=== PATIENT | female | born 1970 | race Caucasian/White ===

== ENCOUNTER 2016-05-31 11:06 | Outpatient (CLI) | payer MEDICAID, OTHER | END 2016-05-31 11:07 | disposition home or self-care (01) | DX: Z20.3 Contact with and (suspected) exposure to rabies (principal); Z71.89 Other specified counseling ==

== ENCOUNTER 2017-01-05 12:38 | Outpatient (CLI) | payer OTHER ==
--- NOTE | 2017-01-05 18:02 | Mammography Report ---
DIGITAL DIAGNOSTIC BILATERAL MAMMOGRAM: 01/05/2017 CLINICAL INDICATION: A 46-year-old with history of late childbearing, personal history of right breast cancer status post lumpectomy. COMPARISON: 10/2015, 11/2014, 07/2014, 12/2013, 07/2011, 07/2010 TECHNIQUE: Bilateral CC and MLO views, bilateral laterally exaggerated craniocaudal views, right true lateral view. FINDINGS: The breasts again demonstrate heterogeneously dense fibroglandular parenchyma. Postoperative and post-treatment changes in the right breast are stable. A few coarse, typically benign calcifications are present. No suspicious masses, clustered microcalcifications, or regions of architectural distortion are identified. IMPRESSION: BENIGN FINDINGS. RECOMMENDATION: ROUTINE ANNUAL SCREENING UNLESS OTHERWISE CLINICALLY INDICATED. BIRADS CATEGORY: 2, BENIGN FINDINGS. STANDARD QUALIFYING STATEMENTS 1. This examination was reviewed with the aid of Computed-Aided Detection (CAD) . 2. A negative or benign imaging report should not delay biopsy if clinically suspicious findings are present. Consider surgical consultation if warranted. More than 5% of cancers are not identified by imaging. 3. Dense breasts may obscure an underlying neoplasm. JOB #: [id number] EXT JOB #: MTDD
== END 2017-01-05 12:39 | disposition home or self-care (01) ==
LOC: DI 12:38
PROVIDERS: ATTEND Internal Medicine Hematology & Oncology
DX: D05.11 Intraductal carcinoma in situ of right breast (principal)
CPT/HCPCS: 77066

== ENCOUNTER 2018-01-04 10:58 | Outpatient (CLI) | payer OTHER ==
--- NOTE | 2018-01-04 12:18 | Mammography Report ---
Reason: RT DCIS Procedure Date: 01/04/2018 Accession Number: [id number] / [id number] Procedure: [facility] - Diagnostic Dig Bilat CPT Code: FULL RESULT: EXAM: Diagnostic Dig Bilat DATE: 01/04/2018 12:00 PM CLINICAL HISTORY: 47-year-old female with history of late childbearing and personal history of right breast cancer status post lumpectomy in 2013. She presents for follow-up diagnostic mammogram. TECHNIQUE: Bilateral CC and MLO views were obtained in 2-D and 3-D tomographic technique. COMPARISON: December 2016 and studies dating back to 2013. FINDINGS: The breasts demonstrate heterogeneously dense fibroglandular parenchyma bilaterally. Posttreatment changes in the right breast are stable. No suspicious masses, clustered microcalcifications, or regions of architectural distortion are identified. IMPRESSION: Benign findings RECOMMENDATION: Recommend routine annual Screening mammography unless otherwise clinically indicated. BIRADS CATEGORY 2: Benign findings STANDARD QUALIFYING STATEMENTS: 1. This examination was not reviewed with the aid of Computer-Aided Detection (CAD). 2. A negative or benign imaging report should not delay biopsy if clinically suspicious findings are present. Consider surgical consultation if warrented. More than 5% of cancers are not identified by imaging. 3. Dense breasts may obscure an underlying neoplasm. 4. This examination was reviewed with the aid of 3D imaging (tomography).
== END 2018-01-04 10:59 | disposition home or self-care (01) ==
LOC: DI 10:58
PROVIDERS: ATTEND Internal Medicine Hematology & Oncology
DX: D05.11 Intraductal carcinoma in situ of right breast (principal)
CPT/HCPCS: 77066

== ENCOUNTER 2019-01-03 11:02 | Outpatient (CLI) | payer OTHER ==
--- NOTE | 2019-01-03 15:50 | Mammography Report ---
Reason: RT BREAST CA, DCIS Procedure Date: 01/03/2019 Accession Number: [id number] / [id number] Procedure: [facility] - Diagnostic Dig Bilat CPT Code: Final Report FULL RESULT: EXAM: Breast Unilateral Limited, Diagnostic Dig Bilat with stefan DATE: 01/03/2019 1:57 PM CLINICAL HISTORY: The patient is an asymptomatic 48-year-old female with a personal history of right breast cancer, post conservation therapy presenting for routine annual evaluation. BILATERAL MAMMOGRAM: TECHNIQUE: Standard CC and MLO views. Diagnostic left breast views. PARENCHYMAL PATTERN: The breast tissue is heterogeneously dense which limits mammographic sensitivity. FINDINGS: RIGHT BREAST: Stable post treatment changes. LEFT BREAST: A new focal nodular asymmetry (ultrasound proven cyst cluster) is noted the 4:00 middle position. The remainder of the breast is stable and unremarkable. There is no mammographic evidence for malignancy. LEFT BREAST ULTRASOUND: TECHNIQUE: High-frequency transducer was utilized to evaluate the area of mammographic concern in the lower outer quadrant. Doppler utilized. 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 FINDINGS: There is an avascular cyst cluster in the 4:00 axis 3 cm from the nipple measuring 7 mm in maximal dimension. This corresponds to the mammographic finding. No solid mass, distortion or hyperemia. There is no sonographic evidence for malignancy. IMPRESSION: Benign findings. BI-RADS category 2. RECOMMENDATION: (ANNUAL) - Recommend routine annual screening mammography. BI-RADS CATEGORY: (2) - Benign Findings. STANDARD QUALIFYING STATEMENTS: 1. This examination was not reviewed with the aid of Computer-Aided Detection (CAD). 2. A negative or benign imaging report should not preclude biopsy if clinically suspicious findings are present. 3. Dense breasts may obscure an underlying neoplasm. 4. This examination was reviewed with the aid of 3D breast imaging (tomosynthesis). TERL
== END 2019-01-03 11:03 | disposition home or self-care (01) ==
LOC: DI 11:02
PROVIDERS: ATTEND Internal Medicine
DX: C50.911 Malignant neoplasm of unspecified site of right female breast (principal)
CPT/HCPCS: 77066

== ENCOUNTER 2020-06-03 13:50 | Outpatient (CLI) | payer OTHER ==
[2020-06-03 14:35] VITALS: BP 103/64
--- NOTE | 2020-06-03 14:35 | SLEEP CARE CONSULTATION ---
Information from patient questionnaire entered by Roro Romo. I have reviewed and concur with the information entered by Roro Romo. This document represents the service I personally performed and the decisions made by me, Brooklynn Knapp ARNP. History of Present Illness Service Date and Time: 06/03/2020 1350 Reason for Visit: New patient Chief Complaint: reports: Unrefreshed sleep, Snoring, Excessive daytime sleepiness, Observed pauses in breathing, Fatigue, Frequent awakenings at night Date of Onset: Most of my life ~ 39 years Usual bedtime: ~ 9 P Time it takes to fall asleep: ~ 30 mins Snores at night: Yes Observed to quit breathing while asleep: Yes Sleeps alone due to snoring: No Number of times waking at night: 3-4 Reasons for waking at night: reports: Choking, Snoring, Gasping for air, Other (unknown reason) Toss, Turn, or Twitch while sleeping: Yes Recalls having dreams: Yes Usually gets out of bed at: ~ 8 am Feels refreshed in the morning: No Morning headache: Yes (~ 12 noon; 3 days a week) Sleepy or fatigued during the day: Yes Ever fallen asleep while driving: Yes (drowsy driving, pulls over before falls asleep) Takes day naps: Yes (daily for about 30 minutes to 1.5 hrs) Dreams during day naps: Yes Prior sleep studies: No Additional HPI information: I had the pleasure of seeing SMITH ARIZA today regarding the possibility of her having a sleep disorder. Her current complaints are excessive daytime sleepiness, fatigue, frequent night awakenings, observed pauses in breathing, snoring and unrefreshed sleep. She states she feels like she is always e xhausted, especially all her adult life. Her partner uses a CPAP and suggested she should get tested. Her PCP agreed and referred. In the last several months she is waking up gasping for air, needing to breathe with her heart pounding at night. She is waking several times a night. She does snore but her significant other does not have to leave the room. Her mother has sleep apnea and is on a PAP machine - Parasomnia Symptoms Ever been unable to move upon waking from sleep: Yes Walks in sleep: No Talks in sleep: Yes Ever acted out dreams in sleep: No Ever felt weak in the knees when startled or emotional: No Bothered by creepy, crawly, restless sensations in legs: Yes (almost every night) Problems with memory or concentration: Yes (both) Subjective Initial [place] Sleepiness Scale score: 18 (in 2020) Past Medical History Past Medical History: reports: Anxiety, Other (occasional migraines - decreasing as I get older; breast cancer 5-6 yrs in remission) Social History 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 Patient is and lives in [place]. Have you smoked in the past 12 months: No Alcohol use: Yes Alcohol amount and frequency: Very occasionally - maybe once every 2-3 weeks Caffeine use: Yes Caffeine amount and frequency: Coffee daily Family History Family history of sleep disordered breathing: Yes Family Hx Sleep Apnea: Mother: Snoring, Sleep apnea - Treated Allergies and Home Medications Drug allergies reviewed: Yes (promethazine HCI) Home medication list reviewed: Yes Allergy and home medication list: Sertraline 100 mg Review of Systems Weight gain over past 5 years: 10 Cardiovascular: reports: palpitations, chest pain (anxiety). denies: high blood pressure Respiratory: reports: shortness of breath Gastrointestinal: denies: heartburn Neurological: reports: headaches (occasional), head trauma (~ 5 years ago) Psychiatric: reports: anxiety Ear/Nose/Throat: denies: tonsillectomy, wisdom teeth removed Endocrine: reports: sluggishness (tired), too hot or cold, unexplained weakness Musculoskeletal: reports: joint pain (stiffness), neck pain, back pain, muscle pain or cramping Immunologic: denies: allergies to food or environment Physical Exam Blood Pressure: 103/64 Cuff size: wrist Heart Rate: 70 O2 Saturation: 98 Height: 5 ft 7 in Weight: 154 lb Body Mass Index: 24.1 BMI Classification: Healthy weight Neck circumference: 13.75 (inches) Nostrils: patent to airflow Mouth and throat: narrow oropharynx Soft palate: long Hard palate: normal Uvula: normal Uvula visualization: 50% Mallampati Class II Tongue: enlarged in size with teeth jordan on lateral edges Tonsils: 1+ Chin and jaw: normal size and position Neck: normal w/o lymphadenopathy or thyromegaly Heart: regular rate and rhythm Lungs: clear bilaterally Impression and Plan 1. Suspected Obstructive Sleep Apnea-Hypopnea Syndrome, as suggested by a history of loud and irregular snoring, observed cessation of breath while asleep, gasping or choking in sleep, morning headache, frequent awakening during the night, unrefreshed sleep, cognitive impairment, and excessive daytime sleepiness. Narrow oropharynx and obesity are common predisposing factors for obstructive sleep apnea-hypopnea syndrome. I recommend proceeding to polysomnography to confirm the diagnosis and to assess severity. If the patient has significant sleep disordered breathing, a manual CPAP titration study will also be performed to find the optimal treatment pressure. I informed the patient of what the sleep studies involve and after some discussion, obtained agreement to proceed. The pathophysiology of obstructive sleep apnea-hypopnea syndrome was discussed with the patient and health risks of cardiovascular and cerebrovascular disease if not treated. 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 Patient agreed to plan. * Schedule polysomnography +- manual CPAP titration study and return in 1-2 weeks after the study to discuss result and initiate therapy. * Avoid long distance driving or driving when feeling sleepy. * Avoid alcohol, sedative and muscle relaxant around bedtime. * Maintain a healthy weight. * Review instructions provided by trained office staff on how to prepare for the sleep study. * Return for follow-up after sleep study completed. Counseling Topics: Weight control Visit Type: In Office Time Spent with Patient (minutes): 30 Provider Statement: I spent 100% of the Face to Face Visit with the patient with greater than 50% spent counseling the patient and coordination of care.
== END 2020-06-03 13:51 | disposition home or self-care (01) ==
LOC: SC 13:50
PROVIDERS: ATTEND Nurse Practitioner Family
DX: G47.10 Hypersomnia, unspecified (principal); R06.83 Snoring; G47.8 Other sleep disorders; R41.89 Other symptoms and signs involving cognitive functions and awareness; R51.9 Headache, unspecified; R06.81 Apnea, not elsewhere classified
CPT/HCPCS: 99203; 99212

== ENCOUNTER 2020-07-08 12:44 | Outpatient (CLI) | payer OTHER ==
--- NOTE | 2020-07-09 14:07 | Mammography Report ---
BILATERAL DIGITAL SCREENING MAMMOGRAM 3D/2D: 07/08/2020 CLINICAL: Routine screening. Routine screening. Personal history of right breast cancer. Comparison is made to exams dated: 01/03/2019 mammogram, 01/04/2018 mammogram, 01/05/2017 mammogram, 10/22/2015 mammogram, 01/16/2015 mammogram, and 07/23/2014 mammogram - Merged with [facility]. The tissue of both breasts is heterogeneously dense. This may lower the sensitivity of mammography. There are benign post operative findings in the right breast. No significant masses, calcifications, or other findings are seen in either breast. There has been no significant interval change. IMPRESSION: BENIGN There is no mammographic evidence of malignancy. A 1 year screening mammogram is recommended. This exam was interpreted at Station ID: [id number]. NOTE: For mammograms, a report in lay terms will be sent to the patient. Approximately 15% of breast malignancies will not be visualized mammographically. In the management of a palpable breast mass, a negative mammogram must not discourage biopsy of a clinically suspicious lesion. Electronically Signed By: Arthur Fierro M.D. [email or web address]/[email or web address]:07/08/2020 16:26:23 ACR BI-RADS Category 2: Benign Finding(s) 3342F PARENCHYMAL PATTERN: (D) - The breast(s) demonstrate(s) heterogeneously dense fibroglandular parben diaz. BI-RADS CATEGORY: (2) - 2 RECOMMENDATION: (ANNUAL) - Recommend routine annual screening mammography. [id number] 1 year screening LATERALITY: (B)
== END 2020-07-08 12:45 | disposition home or self-care (01) ==
LOC: DI 12:44
PROVIDERS: ATTEND Physician Assistant
DX: Z12.31 Encounter for screening mammogram for malignant neoplasm of breast (principal)

== ENCOUNTER 2020-09-26 08:18 | Outpatient (CLI) | payer OTHER ==
--- NOTE | 2020-09-26 08:37 | SLEEP CARE CONSULTATION ---
Information from patient questionnaire entered by Kathrine Uribe. I have reviewed and concur with the information entered by Kathrine Uribe. This document represents the service I personally performed and the decisions made by , Brooklynn Knapp ARNP. History of Present Illness Service Date and Time: 09/26/2020817 Initial [place] Sleepiness Scale score: 18 (in 2020) Current [place] Sleepiness Scale score: 18 Additional HPI information: SMITH ARIZA returns for follow up and results of the recently performed polysomnography at [facility] . I explained the pathophysiology behind obstructive sleep apnea. We then spent quite a bit of time discussing different treatment options. For mild obstructive sleep apnea, surgery and oral appliance are alternatives to nasal CPAP therapy but in moderate or severe cases, nasal CPAP is the most effective and reliable treatment. Because apnea is primarily in supine position, then positional management therapy could be effective. Methods discussed such as positioning with pillows, using a T-shirt with tennis balls in the back, and shown commercial products that have a pillow format on back to prevent supine sleep. I reviewed the impact of weight changes on sleep apnea and strongly recommended losing weight. Patient counseled not drink alcohol less than 4 hours before bedtime as it can increase snoring and apnea. Patient was cautioned about risks of drowsy driving until sleepiness symptoms resolve. Sleep Study - Results Type of Sleep Study: Polysomnography ([facility]) Prior sleep studies: No Polysomnography/Home Sleep Study results: INTERPRETATION: . 1 These findings are consistent with very mild obstructive sleep apnea with an apnea-hypopnea index of 5.4/hr and a minimum oxygen saturation of 80%. Allergies and Home Medications Home medication list reviewed: Yes (no changes) Review of Systems Review of systems same as previous: Yes (no changes) Physical Exam Heart Rate: 115 (had coffee this am) O2 Saturation: 96 Height: 5 ft 7 in Weight: 152 lb Body Mass Index: 23.8 BMI Classification: Healthy weight Impression and Plan 1. Obstructive Sleep Apnea-Hypopnea Syndrome, mild, with lowest oxygen saturation of 90%. Obviously this is the cause of the patients symptoms of unrefreshed sleep, and excessive daytime sleepiness. Positive pressure therapy could benefit anxiety. Since patients apnea is primarily in supine position, patient advised to try positional therapy and agreed with plan. She is also advised to maintain her healthy weight as this will keep snoring and apnea to a minimum. An oral appliance can also be used for snoring but often is not covered by insurance. Follow up is scheduled in one-two months to check effectiveness and if further evaluation indicated such a repeat study in supine position only to see if additional treatment indicated. * Positional therapy * Maintain a healthy weight. * Avoid alcohol consumption near bedtime. * Avoid supine sleep. * The patient is again cautioned about driving until sleepiness completely resolves. * Return one-two months. I will assess response to therapy and compliance at that time. Counseling Topics: Weight control Visit Type: In Office Time Spent with Patient (minutes): 21 Provider Statement: I spent 100% of the Face to Face Visit with the patient with greater than 50% spent counseling the patient and coordination of care.
== END 2020-09-26 08:19 | disposition home or self-care (01) ==
LOC: SC 08:18
PROVIDERS: ATTEND Nurse Practitioner Family
DX: G47.33 Obstructive sleep apnea (adult) (pediatric) (principal)
CPT/HCPCS: 99212; 99213

== ENCOUNTER 2021-10-30 07:54 | Outpatient (CLI) | payer OTHER ==
--- NOTE | 2021-11-02 09:00 | Mammography Report ---
BILATERAL DIGITAL SCREENING MAMMOGRAM 3D/2D: 10/30/2021 CLINICAL: Routine screening. Personal history of right breast cancer. Comparison is made to exams dated: 07/08/2020 mammogram, 01/03/2019 mammogram, 01/04/2018 mammogram, 03/07/2016 mammogram, and 10/22/2015 mammogram - [facility]. Both breasts are heterogeneously dense, which may obscure small masses (category c / 51-75% glandula r tissue). There are benign post operative findings in the right breast. No significant masses, calcifications, or other findings are seen in either breast. There has been no significant interval change. IMPRESSION: BENIGN There is no mammographic evidence of malignancy. A 1 year screening mammogram is recommended. This exam was interpreted at Station ID: [id number]. NOTE: For mammograms, a report in lay terms will be sent to the patient. Approximately 15% of breast malignancies will not be visualized mammographically. In the management of a palpable breast mass, a negative mammogram must not discourage biopsy of a clinically suspicious lesion. Electronically Signed By: Nate Spence acr/penrad:10/30/2021 13:01:27 ACR BI-RADS Category 2: Benign Finding(s) 3342F PARENCHYMAL PATTERN: (D) - The breast(s) demonstrate(s) heterogeneously dense fibroglandular parmarissay ma. BI-RADS CATEGORY: (2) - 2 RECOMMENDATION: (ANNUAL) - Recommend routine annual screening mammography. [id number] 1 year screening LATERALITY: (B)
== END 2021-10-30 07:55 | disposition home or self-care (01) ==
LOC: DI 07:54
PROVIDERS: ATTEND Physician Assistant
DX: Z12.31 Encounter for screening mammogram for malignant neoplasm of breast (principal); Z85.3 Personal history of malignant neoplasm of breast